=== PATIENT | female | born 1985 | race Caucasian/White ===

== ENCOUNTER 2024-04-30 15:08 | Emergency (ER) | payer SELFPAY ==
[2024-04-30] MEDS ORDERED: TRAMADOL HCL 50 MG TAB ONE (15:38)
--- NOTE | 2024-04-30 17:14 | RAD REPORT ---
EXAM: CT left knee without contrast CLINICAL INDICATION: Knee pain TECHNIQUE: CT of the left knee was performed without contrast. Axial, sagittal, and coronal reconstru cted images. This exam was performed according to our departmental dose-optimization program, which includes automated exposure control, adjustment of the mA and/or kV according to patient size and/or use of iterative reconstruction technique. COMPARISON: None FINDINGS: No fracture seen. No dislocation No significant joint effusion. Mild lateral subluxation patella. Anterior soft tissue swelling IMPRESSION: No fracture seen Mild lateral subluxation patella. If the patient continues to have clinical symptoms to suggest ligamentous, meniscal or tendon injury then MRI would be recommended.
[2024-04-30] MEDS ORDERED: KETOROLAC 30 MG/ML INJ ONE (17:18)
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
[2024-04-30 23:12] VITALS: TEMP 98.2; O2SAT 100
[2024-04-30 23:14] VITALS: BP 123/99
== END 2024-04-30 18:38 | disposition home or self-care (01) ==
LOC: ER 15:08
DX: S83.92XA Sprain of unspecified site of left knee, initial encounter (principal)
CPT/HCPCS: 73700; 96374; 99284